=== PATIENT | male | born 1975 | race Caucasian/White ===

== ENCOUNTER 2023-08-27 16:11 | Emergency (ER) | payer BC, SELFPAY ==
[2023-08-27 16:02] VITALS: BP 119/65; PULSE 75; RESP 17; TEMP 37.2; O2SAT 97
--- NOTE | 2023-08-27 16:27 | W.ED.GENAD ---
HPI General Date/Time Provider Initiated Documentation: 08/27/23 16:13. HPI Narrative: 47 year-old male presents to ED today by EMS with a chief complaint of tailbone injury from a fall while skiing with onset just prior to arrival. Quality described as focal tailbone pain, no radiation to numbness in legs, paresthesias, denies urinary retention/bowel incontinence, denies groin numbness, and has stood up since injury. Severity is described as 9/10. Palliating factors include nothing specific attempted. Provoking factors include nothing specific. Patient not anticoagulated. Related Data Home Medications Medication Instructions Recorded Confirmed Unknown [No Known Home Meds] 08/27/23 08/27/23 Allergies Allergy/AdvReac Type Severity Reaction Status Date / Time No Known Allergies Allergy Unverified 08/27/23 16:33 General Stated Complaint: Orthopedic XOCHITL: 3 Review of Systems All systems reviewed & are unremarkable except as noted in HPI and below Exam Narrative Exam Narrative: GENERAL APPEARANCE: Well-nourished, non-toxic, awake and alert, atraumatic, no acute distress. SKIN: Warm, pink, dry, intact, without rashes/lesions/ulcerations. HEAD: Normocephalic, atraumatic, normal hair distribution for gender/age. EYES: Pupils PERRLA, EOMs intact without nystagmus, normal conjunctiva, no exudates on lids/lashes. ENT: Nares patent, no circumoral cyanosis, no facial swelling NECK: Supple, trachea midline, painless cervical ROM. LUNGS/CHEST: Non-labored respirations, normal A/P diameter, symmetrical expansion, no chest wall deformity HEART (CV/PV): Regular rate and rhythm without murmur, no peripheral edema, no JVD. ABDOMEN: Soft, non-distended, no guarding. MSK: Normal ROM, no swelling/deformity to bilateral UEs or LEs, moving all extremities without weakness, no cyanosis, spine midline without tenderness, normal curvature. Back: Midline tenderness without crepitus or step-off or severe contusion to the sacrum and coccyx, neurovascularly intact in bilateral lower extremities and able to range both his legs actively without low back pain, sensation intact, no saddle anesthesia NEURO: Mental Status AAOx4 - alert to person, place, time, events No facial droop, no forehead involvement. Motor: No focal weakness - strength 5/5 in bilateral UEs and LEs, proximal and distal, symmetric. Sensory: sensation intact to light touch globally. Gait NT PSYCH: euthymic, cooperative, pleasant, appropriate speech Course Vital Signs Vital signs: Vital Signs Temperature 37.2 C 08/27/23 16:02 Pulse 75 08/27/23 16:02 Respiratory Rate 17 08/27/23 16:02 Blood Pressure 119/65 08/27/23 16:02 Pulse Oximetry 97 08/27/23 16:02 Temperature 37.2 C 08/27/23 16:02 Temperature Source Temporal Artery Scan 08/27/23 16:02 Pulse 75 08/27/23 16:02 Respiratory Rate 17 08/27/23 16:02 Blood Pressure 119/65 08/27/23 16:02 Blood Pressure Position Supine 08/27/23 16:02 Pulse Oximetry 97 08/27/23 16:02 Oxygen Delivery Method Room Air 08/27/23 16:02 Oxygen Flow Rate 0 08/27/23 16:02 Pain Level 3 08/27/23 16:02 Medical Decision Making This dictation utilizes [id number] dictation software and may contain unedited grammatical errors. 47 y/o M presents to ED today with a chief complaint of fall while skiing with injury to his tailbone, denies urinary retention or bowel incontinence, was able to ambulate after the incident, patient is from [place] will not be following up around here, he denies any numbness or tingling in the legs initial evaluation. Patient does see a chiropractor for known back issue. Patients' medical history: Noncontributory, relatively healthy. Family and social history: Enjoys skiing. Pertinent exam findings / vital signs include Back: Midline tenderness without crepitus or step-off or severe contusion to the sacrum and coccyx, neurovascularly intact in bilateral lower extremities and able to range both his legs actively without low back pain, sensation intact, no saddle anesthesia. Differential / pathologies of concern include fracture, contusion, sprain strain of the lumbar back, unlikely cauda equina. Diagnostic studies of: -CT Lumbar Spine wo Contrast - no acute findings, patient aware of possible cyst- sees a back doctor in [place] for this. Interventions of: -Provided analgesics as well as ice pack and a doughnut for his ride home. ED Course/Assessment/Plan: 47-year-old male presents after tailbone injury while skiing at [employer]. CT is negative for any fracture and he has no wearing signs or symptoms of cauda equina syndrome, the patient was tolerating weightbearing and able to stand under his own power without any deficits of the lower extremities, I counseled him on therapeutic dosing of Tylenol and ibuprofen using the donut as needed as well as icing the area and following up with his regular providers when he returns to [place]. Findings not consistent with cauda equina syndrome, vertebral fracture. Disposition of contusion of sacrum. Patient verbalized understanding of the plan and return to ED criteria and engaged in shared decision making. Medical Records Medical records narrative: none available. Imaging Data Radiologic Study: Attestation: I personally reviewed and interpreted this imaging study as follows: Imaging: CT Scan Radiologist's impression: Exam: CT Lumbar Spine Without Contrast Exam date and time: 08/27/2023 4:46 PM Age: 47 years old Clinical indication: Other: Fall skiing, tingling L foot TECHNIQUE: Imaging protocol: Computed tomography of the lumbar spine without contrast. COMPARISON: No relevant prior studies available. FINDINGS: Bones/joints: No acute fracture. Normal alignment. No significant disc bulge or herniation. No severe spinal canal stenosis. No significant neural foraminal narrowing. There is some lucency with sclerotic margination in the right iliac wing, nonacute. Suspect bone cyst. Soft tissues: Tiny, fat containing right-sided Bochdalek's hernia. IMPRESSION: No evidence for acute posttraumatic abnormality. Dictated and Authenticated by: Keyona Jones MD. Ordering:DESEAN Mcfarland MD Quality:[facility] Health Related Social Needs: No Data to Display [facility] All Active Problems (Updated 08/27/23 @ 17:47 by LEANDRA Cervantes) Contusion of sacrum (Acute) Social History Smoking/Tobacco Use Status: Never Smoking risk assessment performed?: Yes Alcohol Intake: current Alcohol Intake frequency: a few times a week Alcohol type: beer Drug use: Never Substance use type: does not use Housing: house Do you feel safe at home: Yes Do you feel safe in your relationship?: Yes Discharge Plan Disposition Patient Disposition: Home Condition: Stable Discharge Details Clinical Impression: Contusion of sacrum Primary Care Provider: Unknown,Unknown ED Provider: Bartolo Tidwell Home Meds and New Rx's Prescriptions: No Action No Known Home Meds Discharge Instructions Instructions: Contusion in Adults (ED) Additional Instructions: You were seen in the emergency department for the contusion of your sacrum and tailbone area from a ski crash. There is no fracture seen on your CT scan, we did provide you with a disc to bring with you back to [place], there is a possible bone cyst in your right iliac wing of your pelvis that is a suspected bone cyst that you should follow-up with your provider on. Please take another 400 mg of ibuprofen in about 6 hours, hold off on further Tylenol dosings until 12 hours. Please use therapeutic dosing of Tylenol (acetamenophen) & Advil (ibuprofen) in an alternating fashion as follows: Take 1000mg of Tylenol every 6 hours without missing doses- that is 4 times per day. [place] in between the Tylenol dosings, take 400-600mg of Advil also on a 6 hour schedule, that is also 4 times per day. The daily maximum dosing of Tylenol is 4000mg, and the daily maximum dosing of Advil is 2400mg. This is safe to do for weeks. Please note that some common cold medications & prescription pain medications may contain acetamenophen and you need to read OTC drug labels and factor that in to maximum daily dosings. We did provide you with a doughnut and an ice pack, please ice to complete numbness and then let rewarm, please follow-up with orthospine doctor for any complications, return to an emergency facility immediately for any urinary retention, bowel incontinence, numbness to the groin, paresthesias of either leg.
--- NOTE | 2023-08-27 16:30 | DI.CT_ITS ---
Exam(s) CT LUMBAR SPINE WO EXAM: CT LUMBAR SPINE WO CLINICAL HISTORY: fall skiing, tingling L foot. TECHNIQUE: Imaging Protocol: Axial computed tomography images with coronal and sagittal reformatted images were created and reviewed. COMPARISON: No exams were available for comparison FINDINGS: Bones: There is an acute fracture of the superior endplate of L1. There is loss of less than 10 perc ent of the height of the vertebral body anteriorly. There is no involvement of the posterior element s. There is also deformity of the anterior superior aspect of the L2 vertebral body consistent with a mild anterior compression fracture. There is no involvement of the posterior elements. There are mild degenerative changes seen in the lumbar spine. There is a fracture of the anterior aspect of th e 4th sacral segment there does appear to be involvement of the anterior aspect of the neural foramen on the right. (Series 4, image 577). There is mild presacral soft tissue swelling adjacent to the fracture. Soft tissues: The soft tissues of the visualized abdomen and chest are unremarkable. No large disk he rniations are identified. IMPRESSION: 1. Fracture involving the anterior superior aspect of the L1 vertebral body. Less than 10 percent lo ss of the height of the vertebral body is noted. 2. Deformity of the anterior superior aspect of the L2 vertebral body (series 7 image 37 and 38). Th e finding also likely reflects a nondisplaced fracture. 3. Fracture involving the right aspect of the S4 sacral segment with associated soft tissue swelling. 4. Findings were discussed with Bartolo Tidwell at 9:09 p.m. on 08/27/2023. RADIATION DOSE DELIVERED: 846.39mGy.cm Total DLP 846.39mGy.cm Total DLP DATA REPOSITORY: All CT scans at this facility are submitted to the National Radiology Data Registry (NRDR) Dose Index Registry (DIR) with the [employer] ([employer]). RADIATION OPTIMIZATION: All CT scans at this facility use at least one of these dose optimization te chniques: automated exposure control; mA and/or kV adjustment per patient size (includes targeted exa ms where dose is matched to clinical indication); or iterative reconstruction.
[2023-08-27] MEDS: Acetaminophen 500 MG TAB 1000 MG PO (16:43)
[2023-08-27] MEDS: Ketorolac 10 MG TAB PO (16:43)
--- NOTE | 2023-08-27 17:20 | DI.VRAD_ITS ---
PROCEDURE INFORMATION: Exam: CT Lumbar Spine Without Contrast Exam date and time: 08/27/2023 4:46 PM Age: 47 years old Clinical indication: Other: Fall skiing, tingling L foot TECHNIQUE: Imaging protocol: Computed tomography of the lumbar spine without contrast. COMPARISON: No relevant prior studies available. FINDINGS: Bones/joints: No acute fracture. Normal alignment. No significant disc bulge or herniation. No severe spinal canal stenosis. No significant neural foraminal narrowing. There is some lucency with sclerotic margination in the right iliac wing, nonacute. Suspect bone cyst. Soft tissues: Tiny, fat containing right-sided Bochdalek's hernia. IMPRESSION: No evidence for acute posttraumatic abnormality. Dictated and Authenticated by: Keyona Jones MD. Ordering:DESEAN Mcfarland MD
[2023-08-27 18:08] VITALS: BP 120/54; PULSE 87; TEMP 36.3; O2SAT 98
--- NOTE | 2023-08-27 21:09 | ED.PROG_ITS ---
Date of service: 08/27/23 Time of Service: 21:09 Medical Decision Making Radiologist Dr. Franz called me about over read of the patient's lumbar CT that was discharged earlier with a V rad read stating no acute fracture, there is a minor less than 10% height loss superior endplate fracture to L1 and appears les s so to L2 as well as a nondisplaced S4 fracture. I did call the patient to inform him of these and that they are nonsurgical but he should follow-up with orthospine doctors in [place]. Left message around 2100 for patient to call-back but he did not answer. Medical Records Medical records reviewed: Yes I reviewed the patient's medical records. Imaging Data Radiologic Study: Imaging: CT Scan Radiologist's impression: Exam(s) CT LUMBAR SPINE WO EXAM: CT LUMBAR SPINE WO CLINICAL HISTORY: fall skiing, tingling L foot. TECHNIQUE: Imaging Protocol: Axial computed tomography images with coronal and sagittal reformatted images were created and reviewed. COMPARISON: No exams were available for comparison FINDINGS: Bones: There is an acute fracture of the superior endplate of L1. There is loss of less than 10 percent of the height of the vertebral body anteriorly. There is no involvement of the posterior elements. There is also deformity of the anterior superior aspect of the L2 vertebral body consistent with a mild anterior compression fracture. There is no involvement of the posterior elements. There are mild degenerative changes seen in the lumbar spine. There is a fracture of the anterior aspect of the 4th sacral segment there does appear to be involvement of the anterior aspect of the neural foramen on the right. (Series 4, image 577). There is mild presacral soft tissue swelling adjacent to the fracture. Soft tissues: The soft tissues of the visualized abdomen and chest are unremarkable. No large disk herniations are identified. IMPRESSION: 1. Fracture involving the anterior superior aspect of the L1 vertebral body. Less than 10 percent loss of the height of the vertebral body is noted. 2. Deformity of the anterior superior aspect of the L2 vertebral body (series 7 image 37 and 38). The finding also likely reflects a nondisplaced fracture. 3. Fracture involving the right aspect of the S4 sacral segment with associated soft tissue swelling. 4. Findings were discussed with Bartolo Tidwell at 9:09 p.m. on 08/27/2023. Quality:SDOH Health Related Social Needs: No Data to Display Discharge Plan Disposition Patient Disposition: Home Condition: Stable Discharge Details Clinical Impression: Contusion of sacrum, Fracture of lumbar vertebra Primary Care Provider: Unknown,Unknown ED Provider: Bartolo Tidwell Home Meds and New Rx's Prescriptions: No Action No Known Home Meds Discharge Instructions Instructions: Contusion in Adults (ED) Additional Instructions: You were seen in the emergency department for the contusion of your sacrum and tailbone area from a ski crash. There is no fracture seen on your CT scan, we did provide you with a disc to bring with you back to [place], there is a possible bone cyst in your right iliac wing of your pelvis that is a suspected bone cyst that you should follow-up with your provider on. Please take another 400 mg of ibuprofen in about 6 hours, hold off on further Tylenol dosings until 12 hours. Please use therapeutic dosing of Tylenol (acetamenophen) & Advil (ibuprofen) in an alternating fashion as follows: Take 1000mg of Tylenol every 6 hours without missing doses- that is 4 times per day. Longterm in between the Tylenol dosings, take 400-600mg of Advil also on a 6 hour schedule, that is also 4 times per day. The daily maximum dosing of Tylenol is 4000mg, and the daily maximum dosing of Advil is 2400mg. This is safe to do for weeks. Please note that some common cold medications & prescription pain medications may contain acetamenophen and you need to read OTC drug labels and factor that in to maximum daily dosings. We did provide you with a doughnut and an ice pack, please ice to complete numbness and then let rewarm, please follow-up with orthospine doctor for any complications, return to an emergency facility immediately for any urinary retention, bowel incontinence, numbness to the groin, paresthesias of either leg.
== END 2023-08-27 18:04 | disposition home or self-care (01) ==
PROVIDERS: Emergency Provider Physician Assistant
DX: S32.018A Other fracture of first lumbar vertebra, initial encounter for closed fracture (principal); S32.028A Other fracture of second lumbar vertebra, initial encounter for closed fracture; M54.51 Vertebrogenic low back pain; V00.321A Fall from snow-skis, initial encounter
CPT/HCPCS: 00123; 99284; 72131; 99283